=== PATIENT | male | born 1985 | race Caucasian/White ===

== ENCOUNTER 2019-03-18 01:39 | Emergency (ER) | payer BC ==
[2019-03-18] MEDS ORDERED: DIPHENHYDRAMINE HCL 25 MG CAPSULE ONE (02:26)
== END 2019-03-18 03:00 | disposition home or self-care (01) ==
LOC: EDH 01:39
DX: T63.481A Toxic effect of venom of other arthropod, accidental (unintentional), initial encounter (principal); T78.40XA Allergy, unspecified, initial encounter; Y92.89 Other specified places as the place of occurrence of the external cause
CPT/HCPCS: 99282; Q0163